=== PATIENT | male | born 1975 | race Caucasian/White ===

== ENCOUNTER 2021-09-16 12:02 | Outpatient (CLI) | payer OTHER, SELFPAY ==
[2021-09-16 18:12] LABS: Basophils Absolute Auto 0.1 K/mm3 (0.0-0.1); Basophils Percent Auto 1.2 % (0.2-1.2); Eosinophils Absolute Auto 0.1 K/mm3 (0-0.3); Eosinophils Percent Auto 2.1 % (0-4.4); Hematocrit 43.3 % (42.0-52.0); Hemoglobin 14.4 g/dL (14.0-18.0); Immature Granulocyte Absolute 0.03 K/mm3 (0.00-0.031); Immature Granulocyte Percent A 0.4 % (0-0.5); Lymphocytes Absolute Auto 2.22 K/mm3 (0.9-3.2); Lymphocytes Percent Auto 33.2 % (18.3-44.2); Mean Corpuscular HGB Conc 33.3 g/dl (32-36); Mean Corpuscular Volume 90.2 fl (80-100); Mean Platelet Volume 9.9 fl (7.4-10.4); Monocytes Absolute Auto 0.6 K/mm3 (0.1-0.6); Monocytes Percent Auto 9.3 % (2.6-8.5); Neutrophils Absolute Auto 3.6 K/mm3 (1.3-6.7); Neutrophils Percent Auto 53.8 % (45.5-73.1); Platelet Count Result 273 k/mm3 (150-375); Red Cell Distribution Width 12.2 % (11.5-14.5); White Blood Count 6.7 K/mm3 (4.5-10.0)
[2021-09-16 18:55] LABS: Alanine Aminotransferase 67 U/L (4-50); Albumin Level 4.6 g/dL (3.5-5.1); Alkaline Phosphatase 53 U/L (38-126); Anion Gap 12 mmol/L (8-16); Aspartate Amino Transferase 45 U/L (17-59); Bilirubin,Total 0.5 mg/dL (0.2-1.3); Blood Urea Nitrogen 14 mg/dL (9-20); Calcium 9.8 mg/dL (8.4-10.2); Carbon Dioxide 27 mmol/L (22-30); Chloride 101 mmol/L (98-107); Cholesterol 183 mg/dL (0-200); Estimated Glomerular Filt Rate > 60; Glucose 93 mg/dL (65-110); HDL Direct 37 mg/dL; Sodium 140 mmol/L (137-145); Triglycerides 191 mg/dL (<150)
[2021-09-16 19:06] LABS: LDL Cholesterol Direct 111 mg/dL
== END 2021-09-16 12:03 | disposition home or self-care (01) ==
PROVIDERS: PCP Family Medicine; Visit Provider Family Medicine
DX: J32.9 Chronic sinusitis, unspecified (principal); J30.2 Other seasonal allergic rhinitis; G47.10 Hypersomnia, unspecified; E78.00 Pure hypercholesterolemia, unspecified; Z82.49 Family history of ischemic heart disease and other diseases of the circulatory system; K21.00 Gastro-esophageal reflux disease with esophagitis, without bleeding
CPT/HCPCS: 36415; 80053; 80061; 85025; 86003

== ENCOUNTER 2022-01-04 01:48 | Day surgery (SDC) | payer OTHER, SELFPAY ==
[2021-12-21 16:05] VITALS: BMI 29.6
[2022-01-04 07:14] VITALS: BP 125/80; PULSE 64; RESP 18; TEMP 36.2; O2SAT 100
[2022-01-04] MEDS: LACTATED RINGERS 1,000 ML 150 ML IV CONT (07:26)
--- NOTE | 2022-01-04 07:34 | P.PNAN_ITS ---
Anes - Initial Pre Proc Eval Procedure: Operation Date: 01/04/22 08:00 Proposed Procedures p Screening Colonoscopy - Leno Dent MD Date/Time: 01/04/22 07:34 Surgeon: Leno Dent MD Pre Op Diagnosis: neoplasm screening Patient Data Age: 46 Gender: M Height: 1.75 m Weight: 92.3 kg Last Vital Signs Temp 36.2 C L 01/04/22 07:14 Pulse 64 01/04/22 07:14 Resp 18 01/04/22 07:14 BP 125/80 01/04/22 07:14 Pulse Ox 100 01/04/22 07:14 Allergies Allergy/AdvReac Type Severity Reaction Status Date / Time Sulfa (Sulfonamide Allergy Mild Unknown Verified 01/04/22 07:13 Antibiotics) levofloxacin Allergy Unknown Unknown Verified 01/04/22 07:13 Penicillins Allergy Unknown Unknown Verified 01/04/22 07:13 Home Medications Medication Instructions Recorded Confirmed Type rosuvastatin 5 mg tablet 5 mg PO DAILY 01/18/20 12/21/21 History loratadine 10 mg tablet 10 mg PO DAILY 09/03/21 12/21/21 History azithromycin 250 mg tablet See Rx Instructions PO .COMPLEX #6 12/03/21 12/21/21 Rx tablet Patient hx anesthesia problems: none Family hx anesthesia problems: none Results Review: All pre-operative results and documents have been reviewed as part of the pre-operative evaluation. [facility] Past Medical History Medical History Family history of early CAD GERD (gastroesophageal reflux disease) GERD with esophagitis Headache Hypercholesteremia Hypersomnolence Other predatory animal exterminator (current) drug therapy Paresthesia of right upper extremity Surgical History Surgical History H/O knee surgery 90's Family History Family History Mother Family history of heart disease in male family member before age 55 Cerebrovascular accident Brain tumor Father Psoriasis Grandparent Cancer of unknown origin Grandparent Cerebrovascular accident Grandparent Bladder cancer Grandparent Cerebrovascular accident Sibling Hyperlipidemia Social History Social History Smoking status: Never smoker Alcohol intake: current Drinks per week: 5 Substance use: never Substance use type: does not use Living arrangements: with family Spiritual care concerns: No Anes - Eval Final PreProcedure Day of Procedure 01/04/22 07:34 Patient weight: overweight Heart: regular rate and rhythm Lungs: clear to auscultation Airway: Mallampati scale class II Neurological: alert and oriented Last oral intake: >/= 8 hours ASA classification: II Emergent: no Anesthetic plan: proceed Anesthesia type and monitoring: general GIVS and standard monitoring Results Review: All pre-operative results and documents have been reviewed as part of the pre-operative evaluation. Informed Consent: The patient's anesthetic plan and its attendant risks and benefits were discussed with the patient/family/POA. Questions were solicited and answers provided to the satisfaction of the patient/family/POA.
--- NOTE | 2022-01-04 07:46 | PM.HPGS ---
History of Present Illness History of Present Illness Consent: Risks, benefits, and alternatives have been discussed and questions answered. Patient agrees to proceed with procedure. Chief complaint: neoplasm screening Narrative: Simon Díaz is a 46 year old male here for first screening colonoscopy Review of Systems Constitutional: Constitutional: Denies headache(s) and Denies weakness Eyes: Eyes: Denies blurry vision ENT: Reports Normal hearing present, Denies headache(s) and Denies neck pain Cardiovascular: Cardiovascular: Denies chest pain and Denies dyspnea Respiratory: Respiratory: Denies dyspnea Gastrointestinal: Gastrointestinal: Reports no additional gastrointestinal complaints Genitourinary: Genitourinary: Denies dysuria Musculoskeletal: Musculoskeletal: Denies neck pain Integumentary/Breasts: Skin/Breast: Denies dry skin Neurologic: Reports Normal hearing present, Denies headache(s) and Denies weakness Psychiatric: Psychiatric: Denies anxiety Endocrine: Endocrine: Denies change in body appearance Hematologic/Lymphatic: Hematologic/Lymphatic: Denies easy bleeding Allergic/Immunologic: Allergic/Immunologic: Denies urticaria PMF Past Medical History Medical History Family history of early CAD GERD (gastroesophageal reflux disease) GERD with esophagitis Headache Hypercholesteremia Hypersomnolence Other oil heaterman (current) drug therapy Paresthesia of right upper extremity Surgical History Surgical History H/O knee surgery 90's Family History Family History Mother Family history of heart disease in male family member before age 55 Cerebrovascular accident Brain tumor Father Psoriasis Grandparent Cancer of unknown origin Grandparent Cerebrovascular accident Grandparent Bladder cancer Grandparent Cerebrovascular accident Sibling Hyperlipidemia Social History Social History Smoking status: Never smoker Alcohol intake: current Drinks per week: 5 Substance use: never Substance use type: does not use Living arrangements: with family Spiritual care concerns: No Meds Home Medications and Allergies Home Medications Medication Instructions Recorded Confirmed Type rosuvastatin 5 mg tablet 5 mg PO DAILY 01/18/20 12/21/21 History loratadine 10 mg tablet 10 mg PO DAILY 09/03/21 12/21/21 History azithromycin 250 mg tablet See Rx Instructions PO .COMPLEX #6 12/03/21 12/21/21 Rx tablet Allergies Allergy/AdvReac Type Severity Reaction Status Date / Time Sulfa (Sulfonamide Allergy Mild Unknown Verified 01/04/22 07:13 Antibiotics) levofloxacin Allergy Unknown Unknown Verified 01/04/22 07:13 Penicillins Allergy Unknown Unknown Verified 01/04/22 07:13 Vital Signs Vital Signs - 24 hr 01/04/22 07:14 Temperature 97.1 F L Pulse Rate 64 Respiratory Rate 18 Blood Pressure 125/80 Pulse Oximetry 100 Exam Const: General: comfortable and no acute distress HENMT: General nose exam: Normal nares present Eyes: General: appearance normal, both eyes and all related structures Neck: Neck: no JVD Resp: Auscultation: clear to auscultation bilaterally Cardio: Rate: regular rate Rhythm: regular rhythm GI: Inspection: non-distended GI Palp: Yes Soft to palpation Skin: General skin exam: normal color Neuro: General: gait normal Speech: normal speech Extrem: General: normal to inspection Psych: Mental Status: mental status grossly normal Assessment and Plan Assessment and plan (1) Colon cancer screening: Code(s): Z12.11 - Encounter for screening for malignant neoplasm of colon Status: Acute Assessment and Plan: colonoscopy
[2022-01-04 08:05] VITALS: BP 92/67; PULSE 64; RESP 15; O2SAT 100
[2022-01-04 08:15] VITALS: BP 102/71; PULSE 65; RESP 13; O2SAT 96
[2022-01-04 08:25] VITALS: BP 108/82; PULSE 66; RESP 14; O2SAT 95
== END 2022-01-04 08:38 | disposition home or self-care (01) ==
PROVIDERS: PCP Family Medicine; Visit Provider Internal Medicine Gastroenterology
PROC: 0DJD8ZZ Inspection of Lower Intestinal Tract, Via Natural or Artificial Opening Endoscopic (ICD-10-PCS; CPT 45378; principal; 2022-01-04 08:00)
DX: Z12.11 Encounter for screening for malignant neoplasm of colon (principal); K57.30 Diverticulosis of large intestine without perforation or abscess without bleeding; K64.8 Other hemorrhoids; K21.9 Gastro-esophageal reflux disease without esophagitis; E78.00 Pure hypercholesterolemia, unspecified; R20.2 Paresthesia of skin; Z82.49 Family history of ischemic heart disease and other diseases of the circulatory system
CPT/HCPCS: 45378; J2001; J2704; J7120

== ENCOUNTER 2022-10-20 15:01 | Outpatient (CLI) | payer OTHER, SELFPAY ==
--- NOTE | ~2022-10-20 | XR_ITS ---
XR sinus min 3V DATE: 10/20/2022 15:13 INDICATION: Sinus pressure and congestion TECHNIQUE: moises Sanchez, lateral and submental vertical views COMPARISON: None FINDINGS: The paranasal sinuses and mastoid air cells appear normally developed and aerated. IMPRESSION: Negative Reviewed, dictated and finalized at location A. S SERVICE ROUTE MANAGER IMPRESSION: Negative
== END 2022-10-20 15:02 | disposition home or self-care (01) ==
LOC: ANHBWCIMG 15:02
PROVIDERS: PCP Family Medicine; Visit Provider Family Medicine
DX: J32.9 Chronic sinusitis, unspecified (principal)
CPT/HCPCS: 70220

== ENCOUNTER 2024-03-23 15:23 | Outpatient (CLI) | payer OTHER, SELFPAY ==
--- NOTE | ~2024-03-23 | CT_ITS ---
EXAMINATION: CT sinus wo con DATE: 03/23/2024 15:35 INDICATION: Chronic sinusitis TECHNIQUE: Computed tomography (CT) of the paranasal sinuses was performed without intravenous contra st. The dose-length product was 414.22 mGy-cm. Automated exposure control and iterative reconstructio n technique were employed. COMPARISON: None FINDINGS: There is mild mucosal thickening of the left maxillary sinus. No mucoperiosteal reaction. N o air-fluid levels. Rightward nasal septal deviation. Ostiomeatal units are patent. Mastoids are pneu matized. IMPRESSION: 1. Mild sinus disease. Reviewed, dictated and finalized at location B. IMPRESSION: 1. Mild sinus disease.
== END 2024-03-23 15:24 ==
PROVIDERS: PCP Nurse Practitioner Adult Health; Visit Provider Otolaryngology
DX: J32.9 Chronic sinusitis, unspecified (principal)
CPT/HCPCS: 70486

== ENCOUNTER 2024-07-04 07:48 | Outpatient (CLI) | payer OTHER, SELFPAY ==
[2024-07-04 19:01] LABS: Hematocrit 46.7 % (42.0-52.0); Hemoglobin 14.8 g/dL (14.0-18.0); Mean Corpuscular HGB Conc 31.7 g/dl (32-36); Mean Corpuscular Hemoglobin 29.6 pg (26-34); Mean Corpuscular Volume 93.4 fl (80-100); Mean Platelet Volume 9.8 fl (7.4-10.4); Platelet Count Result 273 k/mm3 (150-375); Red Cell Distribution Width 13.2 % (11.5-14.5)
[2024-07-04 20:33] LABS: Alanine Aminotransferase 45 U/L (6-50); Albumin Level 4.3 g/dL (3.5-5.1); Alkaline Phosphatase 53 U/L (38-126); Anion Gap 8 mmol/L (4-12); Aspartate Amino Transferase 59 U/L (17-59); Bilirubin,Total 0.6 mg/dL (0.2-1.3); Blood Urea Nitrogen 15 mg/dL (9-20); Calcium 9.2 mg/dL (8.4-10.2); Carbon Dioxide 28 mmol/L (22-30); Chloride 102 mmol/L (98-107); Cholesterol 174 mg/dL (0-200); Estimated Glomerular Filt Rate > 60; Glucose 89 mg/dL (65-110); HDL Direct 35 mg/dL; Potassium 4.8 mmol/L (3.4-5.0); Sodium 138 mmol/L (137-145); Triglycerides 140 mg/dL (<150)
[2024-07-04 20:45] LABS: LDL Cholesterol Direct 106 mg/dL
[2024-07-04 21:40] LABS: Folic Acid 13.5 ng/mL (2.76->20)
[2024-07-04 23:10] LABS: Prostate Specific Antigen 0.7 ng/mL (< OR = 4.0)
== END 2024-07-04 07:49 | disposition home or self-care (01) ==
LOC: ANHBWCLAB 07:49
PROVIDERS: PCP Nurse Practitioner Adult Health; Visit Provider Nurse Practitioner Adult Health
DX: Z13.9 Encounter for screening, unspecified (principal); Z12.5 Encounter for screening for malignant neoplasm of prostate
CPT/HCPCS: 36415; 80053; 80061; 82607; 82746; 84153; 84443; 85027; G0103

== ENCOUNTER 2024-09-11 07:30 | Outpatient (CLI) | payer OTHER, SELFPAY ==
[2024-09-11 19:44] LABS: Hemoglobin A1C 5.8 % (<5.7)
== END 2024-09-11 07:31 | disposition home or self-care (01) ==
LOC: ANHBWCLAB 07:31
PROVIDERS: PCP Nurse Practitioner Adult Health; Visit Provider Nurse Practitioner Adult Health
DX: Z13.9 Encounter for screening, unspecified (principal)
CPT/HCPCS: 36415; 83036

== ENCOUNTER 2025-01-31 07:33 | Outpatient (CLI) | payer OTHER, SELFPAY ==
--- OUTSIDE RECORDS SUMMARY | 2025-01-31 07:37 | XMS_ITS | Referral Summary ---
Author Organization [facility] Address [address] [place] [address] Care Team Providers Care Grants And Contracts Assistant Name Role Phone Jagdeep Aviles MD Primary Care Provider [phone] Allergies Active Allergy Reactions Criticality Noted Date Comments Penicillin G Unknown 11/19/2019 Sulfa (Sulfonamide Antibiotics) Unknown 10/23 Medications fluticasone propionate (FLONASE) 50 mcg/actuation nasal spray Administer 1 spray into each nostril daily Active loratadine-pseu doephedrine (CLARITIN-D 24-hour) 10-240 mg per 24 hr tablet Take 1 tablet by mouth daily Active guaiFENesin ER (MUCINEX) 600 mg 12 hr tablet Take 2 tablets (1,200 mg total) by mouth 2 (two) times a day Active rosuvastatin (CRESTOR) 5 mg tabletIndicatio ns:Mixed hyperlipidemia, GONZALEZ (dyspnea on exertion),Famil y history of early CAD TAKE 1 TABLET DAILY 90 tablet 1 4 Active Active Problems Problem Noted Date Diagnosed Date Dietary counseling 06/30/2020 Hyperlipidemia 11/19/2019 Family history of early CAD 11/19/2019 GONZALEZ (dyspnea on exertion) 11/19/2019 Social History Tobacco Use Types Packs/Day Years Used Date Smoking Tobacco: Never Smokeless Tobacco: Never Alcohol Use Standard Drinks/Week Comments Never 2 (1 standard drink = 0.6 oz pur e alcohol) AUDIT-C Answer Date Recorded Frequency of Alcohol Consumption Never 11/19/2019 Average Number of Drinks Not on file 019 Frequency of Binge Drinking Not on file 10/23 Personal Safety Answer Date Recorded Getting School Help Needed Not on file 01/30 Sex and Gender Information Value Date Recorded Sex Assigned at Not on file 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 Gender Identity Not on file Sexual Orientation Not on file Last Filed Vital Signs Vital Sign Reading Time Taken Comments Blood Pressure 118/89 07/26/2024 9:04 AM CDT Pulse 82 07/16/2024 12:19 PM CDT Temperature - - Respiratory Rate - - Oxygen Saturation 97% 07/16/2024 12:19 PM CDT Inhaled Oxygen Concentration - - Weight 99.6 kg (219 lb 8 oz) 07/16/2024 12:19 PM CDT Height 175.3 cm (5' 9 ) 07/16/2024 12:19 PM CDT Body Mass Index 32.41 07/16/2024 12:19 PM CDT Plan of Treatment Not on file Insurance [facility] [employer] [facility] CHOICE PLUS [facility] [employer] PL[employer] Care Teams Grants And Contracts Assistant Relationship Specialty Start Date End Date Jagdeep Aviles MD PCP - General Family Practice 06/13/23
--- OUTSIDE RECORDS SUMMARY | 2025-01-31 07:37 | XMS_ITS | Clinical Summary ---
Author Organization [facility] Address [address] [place] [address] Care Team Providers Care Underwriting Sales Representative Name Role Phone Jagdeep Aviles MD Primary Care Provider [phone] Allergies Active Allergy Reactions Criticality Noted Date [...] CAD 11/19/2019 GONZALEZ (dyspnea on exertion) 11/19/2019 Surgical History Surgery Date Site/Laterality Comments KNEE SURGERY Medical History Medical History Date Comments GERD (gastroesophageal reflux disease) Hyperlipidemia High cholesterol Family History Medical History Relation Name Comments Other Father Stroke Mother Relation Name Status Comments Father Mother Social History Tobacco Use Types Packs/Day Years [...] on file 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 Gender Identity Not on file Sexual Orientation Not on file Obstetrics History Last Filed Vital Signs Vital Sign Reading [...] 07/16/2024 12:19 PM CDT Plan of Treatment Health Maintenance Due Date Last Done Comments Colon Cancer Screening-Colonoscopy 1975 Depression Screening 1975 Hepatitis C Screening 1975 DTaP/Tdap/Td Vaccine (1 - Tdap) 1986 Hepatitis B Screening 1993 Regular Well Visit/Exam 18-64 1993 Covid-19 Vaccine (3 - 2023-2 5 season) 2024 03/19/2021, 02/10/2021 Influenza Vaccine (#1) 2024 Pneumococcal vaccine <65 Aged Out No longer eligible based on patient's age to complete this topic Insurance [employer] [employer] Address: [address] [address] [place] [address] [facility] [employer] PLUS [employer] Address: [address] [address] [place] [address] [facility] [employer] PL[employer] Care Teams Underwriting Sales Representative Relationship Specialty Start Date End Date Jagdeep Aviles MD PCP - General Family Practice 06/13/23
--- OUTSIDE RECORDS SUMMARY | 2025-01-31 07:37 | XMS_ITS ---
Author Organization [facility] Address [address] [place] [address] Phone Care Team Providers Care Bookkeeping Teacher Name Role Phone VASHTI CORTÉS, NADEGE Unavailable Unavailable Plan of Treatment Findings Encounter Date Continue current medication SICK VISIT with KIRIT LYMAN 10/14/2020 Last Documented On 0 9:57AM ; [facility] The options include close observation SI CK VISIT with VETO CURRAN-Marla 10/14/2020 Last Documented On 0 9:57AM ; [facility] Assessments Includes: Assessments for all patient encounters No Assessments Recorded Medical Equipment - Implanted Devices Includes: Current and historical Devices No Medical Equipment Recorded Medications Administered Includes: Administered Medications in patient's chart No Administered Medications Recorded Results Includes: Results from 02/01/2024 through 01/31/2025 No Results Recorded For Specified Dates History of Present Illness History of Present Illness not supported for this document type No History of Present Illness Recorded Social History Description Last Updated Not a current smoker 10/14/2020 Last Documented On 0 9:57AM ; [facility] Smoking Status Unknown Medical History Includes: Medical History in patient's chart Description Last Updated Exposure to a contagious disease 020 Last Documented On 0 9:57AM ; [facility] Exposure to a viral disease 10/14/2020 Last Documented On 0 9:57AM ; [facility] Taking OTC medications 10/14/2020 Last Documented On 0 9:57AM ; [facility] Family History Includes: Family History in patient's chart No Family History Recorded Review of Systems Review of Systems not supported for this document type No Review of Systems Recorded Mental Status No Mental Status Recorded Functional Status No Functional Status Recorded Physical Exam Physical Exam not supported for this document type No Physical Exam Recorded Allergies Includes: Active, inactive, and resolved Allergies Substance Type Reaction Onset Date Resolved Date Statu s Penicillins Allergy 10/14/2020 Active Last Documented On 0 9:15AM ; [facility] Insurance Includes: Active Insurance Policies Plan Name Member ID Group # Subscriber Relationship Effect edinson Dates 1 - [facility] [id number] LYLA OCONNELL Clinical Notes Includes: Signed Clinical Notes starting from 12/10/2022 No Clinical Notes Recorded
--- OUTSIDE RECORDS SUMMARY | 2025-01-31 07:37 | XMS_ITS | Clinical Summary ---
Author Organization [facility] Address [address] [place] [address] Phone Care Team Providers Care Food Cooking Machine Operator Name Role Phone VASHTI CORÉTS, NADEGE Unavailable Unavailable Reason for Visit and Chief Complaint The Chief Complaint is: HEADACHES, FATIGUE, SORE THROAT, AND CONGESTION. EXPOSED TO COVID-19 BY HISDAUGHTER Plan of Treatment - The options include close observation - Last Documented On 10/14/2020 9:57AM ; [facility] - Continue current medication - Last Documented On 10/14/2020 9:57AM ; [facility] Rapid COVID testing performed today and was negative. PCR testing sent off due to positive household contact. Patient aware he will need to continue to quarantine until cleared by the health department. Call with development of additional or worsening symptoms. Go to ED with severe respiratory symptoms. - Last Documented On 10/14/2020 9:57AM ; [facility] Due to close contact with a person who has COVID-19, patient was advised to: Stay home until 14 days after last contact. Check temperature twice a day and watch for symptoms of COVID-19. - Last Documented On 10/14/2020 9:57AM ; [facility] Assessments Includes: Assessments from this encounter No Assessments Recorded Medical Equipment - Implanted Devices Includes: Current Devices No Medical Equipment Recorded Medications Administered Includes: Administered Medications from this encounter No Administered Medications Recorded Vital Signs Includes: Vital Signs from this encounter Vital Name 10/14/2020 09:16A Pulse Rate-Sitting (bpm) 71 Temp-Oral (F) 98.6 Oxygen Saturation (%) 94 Last Documented: On 10/14/2020 9:17AM ; [facility] Results Includes: Results discussed during this encounter Rapid COVID Test [facility] Ordered by VETO LYMAN on 09/22 Collected: Reported: 10/14/2020 09:33 Last Documented On 0 9:34AM ; [facility] Reviewed on 10/14/2020; All test results are final unless otherwise noted. Rapid COVId NEG N (Normal) Last Documented On 0 9:34AM ; [facility] Int. QC Acceptable N (Normal) Last Documented On 0 9:34AM ; [facility] Lot # and Exp. Date [id number] 02/05/2021 N (Normal) Last Documented On 0 9:34AM ; [facility] History of Present Illness Includes: History of Present Illness from this encounter HPI SIMON OCONNELL is a 45 year old male. - Medication reconciliation performed. - Feeling poorly (malaise) - No fever - Headache - No sinus pain - No swollen glands in the neck - Nasal discharge - Nasal passage blockage (stuffiness) - Sore throat - No ear symptoms - No earache - No postnasal drip - No sneezing - No chest pain or discomfort - Feeling congested in the chest - No shortness of breath - No cough - Not coughing up sputum - No wheezing - Normal appetite - No nausea - No vomiting - No abdominal pain - No diarrhea - No myalgias Simon is a 45-year-old male patient that presented to the respiratory clinic for headache, fatigue, sore throat and nasal congestion. His daughter recently tested positive for COVID. Social History Description Last Updated Not a current smoker 10/14/2020 Last Documented On 0 9:57AM ; [facility] Smoking Status Unknown Procedures and Surgical History Includes: Procedures from this encounter Procedures Code Diagnosis Performing Provider Service L ocation Service Date Pt to use OTC fever/pain product as needed per product instruction.~ Last Documented On 0 9:51AM ; [facility] Pt to use OTC expectorant product as nee ded per product instruction.~ Last Documented On 0 9:51AM ; [facility] Pt to use OTC cough product as needed pe r product instruction.~ Last Documented On 0 9:51AM ; [facility] plan of care reviewed and agreed to Last Documented On 0 9:51AM ; [facility] patient to call if symptoms worsen or not improved to update patient's status as needed Last Documented On 0 9:51AM ; [facility] review of medications documented 1160F Last Documented On 0 9:16AM ; [facility] Medical History Includes: Medical History addressed during this encounter Description Last Updated Exposure to a contagious disease 020 Last Documented On 0 9:57AM ; [facility] Exposure to a viral disease 10/14/2020 Last Documented On 0 9:57AM ; [facility] Taking OTC medications 10/14/2020 Last Documented On 0 9:57AM ; [facility] Family History Includes: Family History addressed during this encounter No Family History Recorded Review of Systems Includes: Review of Systems from this encounter Systemic: No fever. Head: Headache. Otolaryngeal: No earache. Nasal discharge and sore throat. Cardiovascular: No chest pain or discomfort. Pulmonary: No cough and no wheezing. Gastrointestinal: No vomiting, no abdominal pain, and no diarrhea. Mental Status Includes: Mental Status from this encounter No Mental Status Recorded Functional Status Includes: Functional Status from this encounter No Functional Status Recorded Physical Exam Includes: Physical Exam from this encounter Allergies Includes: Active Allergies Substance Type Reaction Onset Date Resolved Date Statu s Penicillins Allergy 10/14/2020 Active Last Documented On 0 9:15AM ; [facility] Encounters Encounter Provider Location Date Check-In Time Check-Out Time Diagnosis SICK VISIT VETO [id number] [facility] 0 9:30AM 9:43AM Insurance Includes: Active Insurance Policies Plan Name Member ID Group # Subscriber Relationship Effect edinsno Dates 1 - [facility] [id number] LYLA OCONNELL Clinical Notes Includes: Clinical Notes from this encounter No Clinical Notes Recorded
--- OUTSIDE RECORDS SUMMARY | 2025-01-31 07:37 | XMS_ITS | Continuity of Care Document ---
Author Organization [facility] Address [address] [place] [address] Phone Care Team Providers Care Automatic Head Sawyer Name Role Phone Manuel Spain MD Unavailable Unavailable Advance Directives Directive Yes / No Effective Date File Name No Information Encounters Encounter Description Practice Location Reason(s) For Visit Diagnoses Date Provider Providers Copied on Encounter [facility], [address], [place], [place], [id number], [place] tel:[phone] SEC Axel OROZCO Professional No Information 0 7200 4 Grabiel Jakcson. [address], [place], [place], [id number], [place]. tel:[phone] Family History Family Member Type Diagnosis Age At Onset No Information Payers Payer name Insurance type Covered constitution party ID Authoriza tion(s) No Information Social [...]
--- OUTSIDE RECORDS SUMMARY | 2025-01-31 07:37 | XMS_ITS ---
Care Plan - [facility] Created on: January 31, 2025 SHAHRAM OCONNELL : 1975 Sex: Male Author Organization [facility] Address [address] [place] [address] Phone Care Team Providers Care Clinical Trial Leader Name Role Phone VASHTI CORTÉS, NADEGE Mason
[2025-01-31 19:16] LABS: Alanine Aminotransferase 48 U/L (6-50); Albumin Level 4.3 g/dL (3.5-5.1); Alkaline Phosphatase 56 U/L (38-126); Anion Gap 9 mmol/L (4-12); Aspartate Amino Transferase 69 U/L (17-59); Bilirubin,Total 0.4 mg/dL (0.2-1.3); Blood Urea Nitrogen 17 mg/dL (9-20); Carbon Dioxide 24 mmol/L (22-30); Chloride 105 mmol/L (98-107); Cholesterol 147 mg/dL (0-200); Estimated Glomerular Filt Rate > 60; Glucose 97 mg/dL (65-110); HDL Direct 34 mg/dL; Potassium 4.1 mmol/L (3.4-5.0); Sodium 138 mmol/L (137-145); Triglycerides 93 mg/dL (<150)
[2025-01-31 19:27] LABS: LDL Cholesterol Direct 82 mg/dL
[2025-01-31 20:20] LABS: Hemoglobin A1C 5.7 % (<5.7)
== END 2025-01-31 07:34 | disposition home or self-care (01) ==
LOC: ANHBWCLAB 07:34
PROVIDERS: PCP Nurse Practitioner Adult Health; Visit Provider Nurse Practitioner Adult Health
DX: E78.5 Hyperlipidemia, unspecified (principal)
CPT/HCPCS: 36415; 80053; 80061; 83036

== ENCOUNTER 2025-07-25 07:30 | Outpatient (CLI) | payer OTHER, SELFPAY ==
--- OUTSIDE RECORDS SUMMARY | 2004-10-27 10:30 | XMS_ITS | Continuity of Care Document ---
Author Organization [facility] Address [address] [facility] [address] [place] [address] Phone Care Team Providers Care Livestock Farmworker Name Role Phone Manuel Spain MD Unavailable Unavailable Advance Directives Directive Yes / No Effective Date File Name No Information Encounters Encounter Description Practice Location Reason(s) For Visit Diagnoses Date Provider Providers Copied on Encounter [facility], [address], [place], [place], [id number], [place] tel:[phone] SEC Axel OROZCO Professional No Information [phone] Grabiel Jackson. [address], [place], [place], [id number], [place]. tel:[phone] Family History Family Member Type Diagnosis Age At Onset No Information Payers Payer name Insurance type Covered green party ID Authoriza tion(s) No Information Social History Type Description Quantity Date Captured Comments Sex Male Smoking Status No Information Chief Complaint And Reason For Visit No Information Reason For Referral Reason For Referral No Information History Of Present Illness Encounter Date Complaint History Of Prese nt Illness No Information Functional Status Date Functional Assessmen t No Information Instructions Date Instruction Additional Infor mation No Information Assessments Type Assessment Date No Information Patient Care Teams Name Effective Dates (start - stop) Status Members No Information
--- OUTSIDE RECORDS SUMMARY | 2025-07-25 07:34 | XMS_ITS | Clinical Summary ---
Author Organization [facility] Address [address] [place] [address] Care Team Providers Care Pole Peeler Name Role Phone Jagdeep Aviles MD Primary Care Provider [phone] Allergies Active Allergy Reactions Criticality Noted Date [...] CAD TAKE 1 TABLET DAILY 90 tablet 5 Active Active Problems Problem Noted Date Diagnosed [...] on file Legal Sex Male 10:18 AM [employer] Gender Identity Not on file Sexual Orientation [...] 12:19 PM CDT Height 175.3 cm (5' 9) 07/16/2024 12:19 PM CDT Body Mass Index 32.41 07/16/2024 12:19 PM CDT Plan of Treatment Health Maintenance Due Date Last Done Comments Colon Cancer Screening-Colonoscopy 1975 Depression Screening 1975 Hepatitis C Screening 1975 Prostate Cancer Screening-PSA 1975 DTaP/Tdap/Td Vaccine (1 - Tdap) 1986 Hepatitis B Screening 1993 Regular Well Visit/Exam 18-64 1993 Pneumococcal vaccine <65 (1 of 2 - PCV) 1994 Zoster Vaccine (1 of 2) 2025 Covid-19 Vaccine (3 - 2024- season) 2025, 02/10/2021 Influenza Vaccine (#1) 2025 Insurance [facility] [employer] [facility] CHOICE PLUS [facility] CHOICE PLUS Care Teams Pole Peeler Relationship Specialty Start Date End Date Jagdeep Aviles MD PCP - General Family Practice 06/13/23
[2025-07-25 19:04] LABS: Alanine Aminotransferase 53 U/L (6-50); Albumin Level 4.2 g/dL (3.5-5.1); Alkaline Phosphatase 59 U/L (38-126); Anion Gap 10 mmol/L (4-12); Aspartate Amino Transferase 85 U/L (17-59); Bilirubin,Total 0.4 mg/dL (0.2-1.3); Blood Urea Nitrogen 13 mg/dL (9-20); Calcium 9.5 mg/dL (8.4-10.2); Carbon Dioxide 25 mmol/L (22-30); Chloride 102 mmol/L (98-107); Cholesterol 157 mg/dL (0-200); Estimated Glomerular Filt Rate > 60; Glucose 89 mg/dL (65-110); HDL Direct 38 mg/dL; Potassium 4.3 mmol/L (3.4-5.0); Sodium 137 mmol/L (137-145); Total Protein 7.4 g/dL (6.3-8.2); Triglycerides 126 mg/dL (<150)
[2025-07-25 19:40] LABS: Prostate Specific Antigen 0.9 ng/mL (< OR = 4.0)
[2025-07-25 19:57] LABS: Hemoglobin A1C 5.9 % (<5.7)
== END 2025-07-25 07:31 | disposition home or self-care (01) ==
LOC: ANHBWCLAB 07:31
PROVIDERS: PCP Nurse Practitioner Adult Health; Visit Provider Nurse Practitioner Adult Health
DX: Z00.00 Encounter for general adult medical examination without abnormal findings (principal); Z12.5 Encounter for screening for malignant neoplasm of prostate
CPT/HCPCS: 36415; 80053; 80061; 83036; 84153; G0103